=== PATIENT | female | born 1995 | race Hispanic/Latino ===

== ENCOUNTER 2020-05-27 20:25 | Inpatient (IN) | payer OTHER ==
[~2020-05-27] VITALS: Ht 154.9 cm; Wt 77.1 kg
[2020-05-27] MEDS ORDERED: LACTATED RINGERS 1000ML 1,000 ML IV PRN (20:53)
[2020-05-27] MEDS ORDERED: DINOPROSTONE 10 MG VAGINAL SUPP VG SCH (21:00)
[2020-05-27] MEDS ORDERED: EPHEDRINE SULFATE 50 MG/ML AMPULE IVP PRN (21:00)
[2020-05-27] MEDS ORDERED: LACTATED RINGERS 500 ML 500 ML IV PRN (21:00)
[2020-05-27] MEDS ORDERED: PROMETHAZINE HCL 25 MG/ML 1ML AMPULE IM PRN (21:00)
[2020-05-27] MEDS ORDERED: MEPERIDINE-PF 50 MG/ML SYG IVP PRN (21:00)
[2020-05-27] MEDS ORDERED: NALOXONE HCL 0.4 MG/1 ML ML IV PRN (21:00)
[2020-05-27 21:06] LABS: APPEARANCE,URINE Clear (CLEAR); BILIRUBIN,URINE Negative (NEGATIVE); COLOR,URINE Yellow (YELLOW); GLUCOSE, URINE (UA) Negative (NEGATIVE); KETONES,URINE Trace mg/dL (NEGATIVE); LEUKOCYTE ESTERASE ,URINE Trace (NEGATIVE); NITRATE,URINE Negative (NEGATIVE); OCCULT BLOOD,URINE Negative (NEGATIVE); PROTEIN,URINE Negative (NEGATIVE)
[2020-05-27] MEDS ORDERED: OXYTOCIN-LR 20 UNITS/1000 ML 1,000 ML IV SCH (21:15)
[2020-05-27 21:17] LABS: BACTERIA,URINE Rare /HPF (None Seen); RBC,URINE 0-1 /HPF (0-1)
[2020-05-27 21:18] LABS: MUCUS,URINE Few LPF (None Seen); SQUAMOUS EPITHELIAL CELL,UR Few /HPF (0-2)
[2020-05-27 22:00] LABS: HEMATOCRIT 32.3 % (36-48); MEAN CORPUSCULAR HEMOGLOBIN 27.5 pg (27.0-33.0); MEAN CORPUSCULAR HGB CONC 33.1 g/dL (32.0-36.0); RED BLOOD CELL COUNT(AUTO) 3.89 MIL/uL (4.00-5.50); RED CELL DISTRIBUTION WIDTH 14.2 % (11.0-15.5); WHITE BLOOD COUNT (AUTO) 10.6 K/uL (4.8-10.8)
[2020-05-28] MEDS ORDERED: MISOPROSTOL 200 MCG TABLET ONE (17:20)
[2020-05-28] MEDS ORDERED: LIDOCAINE HCL 1% 20 ML VIAL ONE (17:20)
[2020-05-28] MEDS ORDERED: METHYLERGONOVINE MALEATE 0.2 MG/1 ML ML ONE (17:20)
[2020-05-28] MEDS ORDERED: OXYTOCIN 10 USP UNITS/ML ONE (18:02)
[2020-05-28] MEDS ORDERED: BENZOCAINE/LANOLIN/ALOE VERA 60 ML AEROSOL TP PRN (18:45)
[2020-05-28] MEDS ORDERED: WITCH HAZEL 1 PAD TP PRN (18:45)
[2020-05-28] MEDS ORDERED: IBUPROFEN 600 MG TABLET PO PRN (18:45)
[2020-05-28] MEDS ORDERED: ACETAMINOPHEN-CODEINE 300/30MG TAB PO PRN (18:45)
[2020-05-28] MEDS ORDERED: ACETAMINOPHEN 325 MG TAB PO PRN (18:45)
[2020-05-28] MEDS ORDERED: OXYTOCIN-LR 20 UNITS/1000 ML 1,000 ML IV SCH (18:45)
[2020-05-28] MEDS ORDERED: LANOLIN 30GM OINTMENT TP PRN (18:45)
[2020-05-28] MEDS ORDERED: MEASLES/MUMPS/RUBELLA VACCINE, LIVE 0.5 ML/VIAL SQ PRN (18:45)
[2020-05-28] MEDS ORDERED: DIPH,PERTUSS(ACELL),TET VAC/PF 0.5 ML VIAL IM PRN (18:45)
[2020-05-28 20:40] VITALS: BP 122/81
--- NOTE | 2020-05-28 22:25 | NUR ---
Report received from Jose Farris RN; Patient came in via wheelchair accompanied by Jose Farris RN, Lilliam Pierre, ux design manager and her . Baby room in with her lying in an open crib. She has an IV of LR with 20 units Pitocin infusing at 125 ml/hour. Plan of care discussed with her, oriented to room, call light given. Advice to call if needed. She verbalizes understanding.
[2020-05-28 22:26] LABS: HEMATOCRIT 30.1 % (36-48)
[2020-05-28] MEDS ORDERED: PREN-202 PO (22:40)
[2020-05-28] MEDS: DOCUSATE SODIUM 100 MG CAP PO SCH (23:23)
[2020-05-28 23:25] VITALS: BP 117/66
[2020-05-29 03:45] VITALS: BP 123/63
--- NOTE | 2020-05-29 06:05 | NUR ---
MOTRIN 600 MG P.O. PRN FOR CRAMPING GIVEN. NOT ABLE TO SCAN MEDICATION [facility]. CHARTED ON PAPER.
[2020-05-29 07:16] LABS: HEPATITIS Bs ANTIGEN SCREEN P Negative (Negative)
[2020-05-29 07:34] VITALS: BP 113/77
--- NOTE | 2020-05-29 08:00 | NUR ---
PATIENT ASSESSED AND IS STABLE. STATES AND IS DOING WELL. DENIES ANY DIZZINESS ON AMBULATION. C/O SOME MILD DISCOMFORT AND HAD MOTRIN AT 0605. PATIENT OTHERWISE STABLE.
[2020-05-29 08:34] LABS: HEMATOCRIT 25.3 % (36-48); MEAN CORPUSCULAR HEMOGLOBIN 27.7 pg (27.0-33.0); MEAN CORPUSCULAR HGB CONC 33.2 g/dL (32.0-36.0); MEAN CORPUSCULAR VOLUME 83.5 fL (79-99); RED BLOOD CELL COUNT(AUTO) 3.03 MIL/uL (4.00-5.50); RED CELL DISTRIBUTION WIDTH 14.4 % (11.0-15.5); WHITE BLOOD COUNT (AUTO) 15.4 K/uL (4.8-10.8)
[2020-05-29] MEDS: DOCUSATE SODIUM 100 MG CAP PO SCH (09:07)
--- NOTE | 2020-05-29 10:15 | NUR ---
DR. DYER ROUNDING AT THIS TIME AND ROUNDED ON PATIENT AND DISCHARGED PATIENT TO HOME AFTER 24 HOURS. PATIENT STABLE AND ALTHOUGH SHE HAD A 2 GM DROP IN H/H, SHE DENIES ANY DIZZINESS ON AMBULATION.
[2020-05-29 12:08] VITALS: BP 110/61
[2020-05-29 16:13] VITALS: BP 113/76
--- NOTE | 2020-05-29 17:20 | NUR ---
DISCHARGE INSTRUCTIONS GIVEN AND PATIENT VERBALIZED UNDERSTANDING INSTRUCTIONS GIVEN. SALINE LOCK WAS REMOVED AND SITE IS WNL. PATIENT DENIES PAIN.
--- NOTE | 2020-05-29 18:35 | NUR ---
PATIENT WAS TAKEN VIA W/C CARRYING BABY IN ARMS TO FAMILY VEHICLE AND WERE DISCHARGED TO SPOUSE IN STABLE CONDITION. PATIENT DENIES PAIN.
== END 2020-05-29 18:35 | disposition home or self-care (01) | DRG 806 ==
LOC: LDH 20:25 → WSH 05-28 22:20
PROVIDERS: ADMIT Obstetrics & Gynecology; ATTEND Obstetrics & Gynecology
PROC: 10E0XZZ Delivery of Products of Conception, External Approach (ICD-10-PCS; principal; 2020-05-29)
PROC: 3E0234Z Introduction of Serum, Toxoid and Vaccine into Muscle, Percutaneous Approach (ICD-10-PCS; 2020-05-29)
PROC: 0UQGXZZ Repair Vagina, External Approach (ICD-10-PCS; 2020-05-29)
PROC: 3E0P7VZ Introduction of Hormone into Female Reproductive, Via Natural or Artificial Opening (ICD-10-PCS; 2020-05-29)
DX: O71.4 Obstetric high vaginal laceration alone (principal); O72.1 Other immediate postpartum hemorrhage; Z37.0 Single live birth; Z3A.39 39 weeks gestation of pregnancy; Z23 Encounter for immunization
CPT/HCPCS: 36415; 81001; 85014; 85018; 85027; 86592; 86850; 86870; 86900; 86901; 87340; A4351; A4606; G0378; J2175; J2210; J2550; J2590; J7120